=== PATIENT | female | born 1960 | race Caucasian/White ===

== ENCOUNTER 2017-01-24 12:56 | Outpatient (CLI) | payer BC ==
--- NOTE | 2017-01-24 16:25 | Ultrasound Report ---
PELVIC ULTRASOUND: 01/24/2017 CLINICAL INDICATION: Heavy menses. TECHNIQUE: As requested, only transabdominal imaging was performed. Real-time scanning performed an d static images obtained. FINDINGS: The uterus is anteverted, measuring 9.2 x 5.4 x 4.2 cm. The endometrial echo complex criss ures 10 mm. There is a 4.5 x 4.0 x 3.9 cm right fundal leiomyoma present. The right ovary measures 2.7 x 2.4 x 2.3 cm, and contains a 1.7 cm cyst. The left ovary measures 2.8 x 2.6 x 1.8 cm, and appe ars unremarkable. No free fluid is present. IMPRESSION: FUNDAL LEIOMYOMA. A 1.7 CM RIGHT OVARIAN CYST. JOB #: [id number] EXT JOB #:[id number]
== END 2017-01-24 12:57 | disposition home or self-care (01) ==
LOC: DI 12:56
PROVIDERS: ATTEND Physician Assistant
DX: D25.9 Leiomyoma of uterus, unspecified (principal); N83.201 Unspecified ovarian cyst, right side
CPT/HCPCS: 76856

== ENCOUNTER 2017-03-09 10:09 | Outpatient (CLI) | payer BC ==
--- NOTE | 2017-03-11 14:02 | Mammography Report ---
DATE OF SERVICE: 03/09/2017 DIGITAL SCREENING MAMMOGRAM: 03/10/2017 CLINICAL INDICATION: A 57-year-old nulliparous patient for screening. COMPARISON: 02/2016, 03/2014, 08/2012, 04/2011. TECHNIQUE: Routine CC and MLO projections were obtained of the breasts. FINDINGS: The breasts again demonstrate heterogeneously dense fibroglandular parenchyma bilaterally. Coarse and punctate, typically benign calcifications are present, no suspicious masses, clustered microcalcifications, or regions of architectural distortion are identified. IMPRESSION: Benign findings. RECOMMENDATION: Routine annual screening unless otherwise clinically indicated. BIRADS category 2 - benign findings. STANDARD QUALIFYING STATEMENTS: 1. This examination was reviewed with the aid of Computer-Aided Detection (CAD). 2. A negative or benign imaging report should not delay biopsy if clinically suspicious findings are present. Consider surgical consultation if warranted. More than 5% of cancers are not identified by imaging. 3. Dense breasts may obscure an underlying neoplasm. TD: 03/10/2017 11:09
== END 2017-03-09 10:10 | disposition home or self-care (01) ==
LOC: DI 10:09
PROVIDERS: ATTEND Physician Assistant
DX: Z12.31 Encounter for screening mammogram for malignant neoplasm of breast (principal)
CPT/HCPCS: 77067

== ENCOUNTER 2017-03-09 10:33 | Outpatient (CLI) | payer BC ==
--- NOTE | 2017-03-10 16:21 | Ultrasound Report ---
DATE OF SERVICE: 03/09/2017 PELVIC ULTRASOUND: 03/09/2017 CLINICAL INDICATION: Ovarian cyst. COMPARISON: 01/24/2017 TECHNIQUE: Transabdominal pelvic ultrasound performed for global evaluation. Transvaginal pelvic ul trasound performed for detailed evaluation. Real-time scanning performed and static images obtained. FINDINGS: The uterus is anteverted, measuring 10.0 x 6.9 x 4.4 cm. The endometrial echo complex cherie sures 10 mm. The right fundal leiomyoma is again noted, measuring 4.9 x 4.4 x 4.2 cm, and better seen on english svaginal imaging today is a posterior intramural leiomyoma measuring 1.0 x 0.8 x 0.7 cm. The right ovary criss ures 2.8 x 2.5 x 1.7 cm, and again demonstrates a 1.8 x 1.6 x 1.6 cm cyst. The left ovary measures 2.0 x 2.0 x 1.1 cm, and demonstrates a 1.4 x 1.0 x 0.7 cm cyst. No free fluid is present. IMPRESSION: Fundal leiomyomas. Bilateral small ovarian cysts. TD: 03/09/2017 18:15
== END 2017-03-09 10:34 | disposition home or self-care (01) ==
LOC: DI 10:33
PROVIDERS: ATTEND Registered Nurse
DX: N83.202 Unspecified ovarian cyst, left side (principal); N83.201 Unspecified ovarian cyst, right side; D25.1 Intramural leiomyoma of uterus
CPT/HCPCS: 76830; 76856

== ENCOUNTER 2018-07-26 15:33 | Outpatient (CLI) | payer OTHER ==
--- NOTE | 2018-07-26 16:40 | Mammography Report ---
Reason: SCREENING MAMMO Procedure Date: 07/26/2018 Accession Number: [id number] / [id number] Procedure: [facility] - Screening Mammo w/Hill CPT Code: FULL RESULT: EXAM: Screening Mammo w/Hill DATE: 07/26/2018 3:59 PM CLINICAL HISTORY: Routine screening. No reported personal history of breast cancer. Family history breast cancer paternal grandmother age 70. TECHNIQUE: (B) - Bilateral CC and MLO views were obtained. COMPARISON: None PARENCHYMAL PATTERN: (D) - The breasts demonstrate heterogeneously dense fibroglandular parenchyma bilaterally. FINDINGS: Bilateral breasts: There are no suspicious masses, calcifications, or areas of distortion. IMPRESSION: Negative examination. BI-RADS category 1. RECOMMENDATION: (ANNUAL) - Recommend routine annual screening mammography. BI-RADS CATEGORY: (1) - Negative. STANDARD QUALIFYING STATEMENTS: 1. This examination was not reviewed with the aid of Computer-Aided Detection (CAD). 2. A negative or benign imaging report should not preclude biopsy if clinically suspicious findings are present. 3. Dense breasts may obscure an underlying neoplasm. 4. This examination was reviewed with the aid of 3D breast imaging (tomosynthesis).
== END 2018-07-26 15:34 | disposition home or self-care (01) ==
LOC: DI 15:33
PROVIDERS: ATTEND Physician Assistant
DX: Z12.31 Encounter for screening mammogram for malignant neoplasm of breast (principal); Z80.3 Family history of malignant neoplasm of breast
CPT/HCPCS: 77063; 77067

== ENCOUNTER 2022-01-07 10:09 | Outpatient (CLI) | payer BC ==
--- NOTE | 2022-01-08 10:19 | Mammography Report ---
BILATERAL DIGITAL SCREENING MAMMOGRAM 3D/2D: 01/07/2022 CLINICAL: Routine screening. Comparison is made to exams dated: 10/18/2019 mammogram, 07/26/2018 mammogram, 03/09/2017 mammogram, mammogram, 03/25/2014 mammogram, and 08/14/2012 mammogram - [facility]. Both breasts are heterogeneously dense, which may obscure small masses (category c / 51-75% glandular tissue). No significant masses, calcifications, or other findings are seen in either breast. There has been no significant interval change. IMPRESSION: NEGATIVE There is no mammographic evidence of malignancy. A 1 year screening mammogram is recommended. This exam was interpreted at Station ID: [id number]. NOTE: For mammograms, a report in lay terms will be sent to the patient. Approximately 15% of breast malignancies will not be visualized mammographically. In the management of a palpable breast mass, a negative mammogram must not discourage biopsy of a clinically suspicious lesion. Electronically Signed By: Geoffrey Christiansen M.D. [email or web address]:01/07/2022 21:47:19 ACR BI-RADS Category 1: Negative 3341F PARENCHYMAL PATTERN: (D) - The breast(s) demonstrate(s) heterogeneously dense fibroglandular katarina puente. BI-RADS CATEGORY: (1) - 1 RECOMMENDATION: (ANNUAL) - Recommend routine annual screening mammography. [id number] 1 year screening LATERALITY: (B)
== END 2022-01-07 10:10 | disposition home or self-care (01) ==
LOC: DI 10:09
DX: Z12.31 Encounter for screening mammogram for malignant neoplasm of breast (principal)

== ENCOUNTER 2022-09-08 07:00 | Outpatient (CLI) | payer BC ==
--- NOTE | 2022-09-08 16:23 | XRAY Report ---
PROCEDURE: Foot 3 View LT INDICATIONS: SPRAIN OF LEFT FOOT TECHNIQUE: 3 views of the foot were acquired. COMPARISON: None. FINDINGS: Bones: Acute mildly displaced oblique fracture of the fifth metatarsal diaphysis, approximately one third shaft width medial displacement of the distal fragment. Soft tissues: No suspicious soft tissue calcifications . IMPRESSION: Acute mildly displaced fifth metatarsal fracture. Reviewed by: Jalen Garcia MD on 09/08/2022 4:22 PM PDT Approved by: Jalen Garcia MD on 09/08/2022 4:22 PM PDT Station ID: [id number]
== END 2022-09-08 23:59 | disposition home or self-care (01) ==
LOC: DI.S 07:00
PROVIDERS: ATTEND Emergency Medicine
DX: S92.352A Displaced fracture of fifth metatarsal bone, left foot, initial encounter for closed fracture (principal)